=== PATIENT | female | born 1950 | race Caucasian/White ===

== ENCOUNTER 2018-04-22 09:02 | Outpatient (CLI) | payer MEDICARE, OTHER | END 2018-04-22 09:03 | disposition home or self-care (01) | LOC: BICMAMMO 09:02 | PROVIDERS: ATTEND Internal Medicine | DX: Z12.31 Encounter for screening mammogram for malignant neoplasm of breast (principal); Z13.820 Encounter for screening for osteoporosis; M81.0 Age-related osteoporosis without current pathological fracture; Z78.0 Asymptomatic menopausal state; Z80.3 Family history of malignant neoplasm of breast | CPT/HCPCS: 77063; 77067; 77080 ==

== ENCOUNTER 2018-05-15 10:00 | Outpatient (CLI) | payer MEDICARE | END 2018-05-15 10:01 | disposition home or self-care (01) | LOC: BICRAD 10:00 | PROVIDERS: ATTEND Internal Medicine Medical Oncology | DX: D72.818 Other decreased white blood cell count (principal); J98.4 Other disorders of lung | CPT/HCPCS: 71046; 80053; 82248; 83520; 83615; 84100; 84165; 84550; 86038; 86200; 86225; 87389 ==

== ENCOUNTER 2019-04-23 08:59 | Outpatient (CLI) | payer MEDICARE ==
--- NOTE | 2019-04-23 09:29 | BD ---
DEXA BONE DENSITY SCAN: COMPARISON: 04/22/2018 HISTORY: Postmenopausal female undergoing screening for osteoporosis. LUMBAR SPINE BMD (g/cm2) T-SCORE PREVIOUS T-SCORE L1 0.774 -2.0 -2.1 L2 0.864 -1.5 -1.6 L3 0.878 -1.9 -1.9 L4 0.887 -1.6 -1.6 TOTAL LUMBAR SPINE 0.851 -1.8 -1.8 FEMORAL NECK 0.570 -2.5 -2.6 TOTAL PROXIMAL FEMUR 0.646 -2.4 -2.6 The FRAX-WHO Fracture Risk Assessment tool was is reported, as some T-scores are at or below -2.5. IMPRESSION: 1. 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 2. There is osteopenia throughout the lumbar spine. Transcribed Date/Time: 04/23/2019 9:40 AM
--- NOTE | 2019-04-23 09:45 | MMO ---
Bilateral MAMMO Bilat Screen [facility]. CLINICAL HISTORY: Patient is 68 years old and is seen for screening. The patient has the following family history of breast cancer: paternal aunt. The patient has no personal history of cancer. VIEWS: The views performed were: bilateral craniocaudal with tomosynthesis and bilateral mediolateral oblique with tomosynthesis. FILMS COMPARED: The present examination has been compared to prior imaging studies performed at [facility] on 03/24/2015, 03/28/2016, 04/09/2017 and 04/22/2018. MAMMOGRAM FINDINGS: The breasts are heterogeneously dense, which could obscure a lesion on mammography. There are stable benign appearing calcifications seen in both breasts. There are no suspicious masses, suspicious calcifications, or new areas of architectural distortion. IMPRESSION: THERE IS NO MAMMOGRAPHIC EVIDENCE OF MALIGNANCY. A ROUTINE FOLLOW-UP MAMMOGRAM IN 1 YEAR IS RECOMMENDED. THE RESULTS OF THIS EXAM WERE SENT TO THE PATIENT. ACR BI-RADS Category 2 - Benign finding MAMMOGRAPHY NOTE: 1. A negative mammogram report should not delay a biopsy if a dominant of clinically suspicious mass is present. 2. Approximately 10% to 15% of breast cancers are not detected by mammography. 3. Adenosis and dense breasts may obscure an underlying neoplasm.
== END 2019-04-23 09:00 | disposition home or self-care (01) ==
LOC: BICMAMMO 08:59
PROVIDERS: ATTEND Internal Medicine
DX: Z12.31 Encounter for screening mammogram for malignant neoplasm of breast (principal); M81.0 Age-related osteoporosis without current pathological fracture; M85.88 Other specified disorders of bone density and structure, other site
CPT/HCPCS: 77063; 77067; 77080

== ENCOUNTER 2021-07-18 12:53 | Outpatient (CLI) | payer MEDICARE | END 2021-07-18 12:54 | disposition home or self-care (01) | LOC: BICMAMMO 12:53 | PROVIDERS: ATTEND Internal Medicine | DX: Z12.31 Encounter for screening mammogram for malignant neoplasm of breast (principal); Z80.3 Family history of malignant neoplasm of breast | CPT/HCPCS: 77063; 77067 ==

== ENCOUNTER 2021-10-18 13:52 | Outpatient (CLI) | payer MEDICARE | END 2021-10-18 13:53 | disposition home or self-care (01) | LOC: BICULT 13:52 | PROVIDERS: ATTEND Internal Medicine | DX: N28.9 Disorder of kidney and ureter, unspecified (principal); N28.1 Cyst of kidney, acquired | CPT/HCPCS: 76770 ==

== ENCOUNTER 2022-07-31 09:48 | Outpatient (CLI) | payer MEDICARE | END 2022-07-31 09:49 | disposition home or self-care (01) | LOC: BICMAMMO 09:48 | PROVIDERS: ATTEND Internal Medicine | DX: Z12.31 Encounter for screening mammogram for malignant neoplasm of breast (principal); M81.0 Age-related osteoporosis without current pathological fracture; M85.89 Other specified disorders of bone density and structure, multiple sites; Z80.3 Family history of malignant neoplasm of breast | CPT/HCPCS: 77063; 77067; 77080 ==

== ENCOUNTER 2023-09-11 12:24 | Outpatient (CLI) | payer MEDICARE | END 2023-09-11 12:25 | disposition home or self-care (01) | LOC: BICMAMMO 12:24 | PROVIDERS: ATTEND Internal Medicine | DX: Z12.31 Encounter for screening mammogram for malignant neoplasm of breast (principal); Z80.3 Family history of malignant neoplasm of breast | CPT/HCPCS: 77063; 77067 ==

== ENCOUNTER 2024-09-13 08:49 | Outpatient (CLI) | payer MEDICARE | END 2024-09-13 08:50 | disposition home or self-care (01) | LOC: BICMAMMO 08:49 | PROVIDERS: ATTEND Internal Medicine | DX: Z12.31 Encounter for screening mammogram for malignant neoplasm of breast (principal); Z80.3 Family history of malignant neoplasm of breast | CPT/HCPCS: 77063; 77067 ==

== ENCOUNTER 2025-09-14 13:07 | Outpatient (CLI) | payer MEDICARE | END 2025-09-14 13:08 | disposition home or self-care (01) | LOC: BICMAMMO 13:07 | PROVIDERS: ATTEND Internal Medicine | DX: Z12.31 Encounter for screening mammogram for malignant neoplasm of breast (principal); Z80.3 Family history of malignant neoplasm of breast | CPT/HCPCS: 77063; 77067 ==